=== PATIENT | female | born 1990 ===

== ENCOUNTER 2016-09-14 15:33 | Emergency (ER) | payer OTHER ==
[2016-09-14 15:40] VITALS: BP 134/74; RESP 16; TEMP 98.1; O2SAT 100
--- NOTE | 2016-09-14 16:14 | ED PDOC ---
Lower Extremity Pain/Injury Time Seen by Provider: 09/14/16 15:41 Chief Complaint (Nursing): Lower Extremity Problem/Injury Chief Complaint (Provider): Lower Extremity Problem/Injury History Per: Patient History/Exam Limitations: no limitations Onset/Duration Of Symptoms: Days Current Symptoms Are (Timing): Still Present Severity: Mild Additional Complaint(s): 25 y/o female patient presenting to the ED with foot irritation. PT states she was walking down the street Monday on her way home and she came into contact with dirty basement water while she was wearing flipflops. She states she immediately washed her feet when she got home and did not notice any immediate changes on Monday however the following day, her right foot was tender to touch , uncomfortable to put her shoes on and she noticed bumps all over the bottom of her foot. - Ankle/Foot Description Of Injury: Other (Came into contact with dirty water ) Past Medical History Reviewed: Historical Data, Nursing Documentation, Vital Signs Vital Signs: Last Vital Signs Temp 98.1 F 09/14/16 15:36 Pulse 97 H 09/14/16 15:36 Resp 16 09/14/16 15:36 BP 134/74 09/14/16 15:36 Pulse Ox 100 09/14/16 15:36 - Medical History PMH: Hypercholesterolemia, Hyperlipidemia Denies: Chronic Kidney Disease - Family History Family History: States: Unknown Family Hx - Immunization History Hx Tetanus Toxoid Vaccination: No Hx Influenza Vaccination: No Hx Pneumococcal Vaccination: No - Home Medications Home Medications: Ambulatory Orders Medication Instructions Recorded Atorvastatin [Lipitor] 25 mg PO DAILY 07/01/14 Control 07/01/14 Diphenhydramine Hydrochlorid 50 mg PO Q8 #14 cap 07/01/14 [Benadryl] Methylprednisolone [Medrol Dose 4 mg PO ASDIR #21 mg 07/01/14 Pack (21 tabs)] Codeine Phos/Phenyleph HCl/P 5 ml PO Q12 PRN #100 ml 01/28/15 [Phenergan Vc W/Codeine 480 ml] Ibuprofen [Motrin] 600 mg PO Q8 PRN #21 tab 01/28/15 Pseudoephedrine [Sudafed Tab] 60 mg PO Q6 PRN #24 tab 01/28/15 Cephalexin [cephalexin] 500 mg PO QID #20 cap 05/12/15 Ibuprofen [Motrin] 600 mg PO Q8 #20 tab 05/12/15 Fluticasone Propionate [Flonase] 2 spr NS DAILY #1 bottle 12/19/15 Promethazine DM [Phenergan DM 5 ml PO Q8 PRN #120 ml 12/19/15 Syrup] Clotrimazole 1% Cream [Lotrimin 1%] 1 cre TP BID #1 09/14/16 - Allergies Allergies/Adverse Reactions: Allergies Allergy/AdvReac Type Severity Reaction Status Date / Time No Known Allergies Allergy Verified 03/09/14 11:54 Review of Systems ROS Statement: Except As Marked, All Systems Reviewed And Found Negative Constitutional: Negative for: Fever Respiratory: Negative for: Shortness of Breath Gastrointestinal: Negative for: Nausea, Vomiting, Diarrhea Musculoskeletal: Positive for: Foot Pain Skin: Positive for: Rash Physical Exam - Reviewed Nursing Documentation Reviewed: Yes Vital Signs Reviewed: Yes - Physical Exam Appears: Positive for: Non-toxic, No Acute Distress Skin: Positive for: Normal Color, Warm Extremity: Positive for: Normal ROM, Other (Rash ) Neurologic/Psych: Positive for: Alert, Oriented. Negative for: Motor/Sensory Deficits - ECG O2 Sat by Pulse Oximetry: 100 (RA) Pulse Ox Interpretation: Normal Medical Decision Making Medical Decision Making: Time: 1541 Initial impression: Tinea pedis Initial plan: Podiatry consult- see notes Scribe Attestation: Documented by Kendra Laureano acting as a scribe for RED Stroud MD Scribe Attestation: All medical record entries made by the Scribe were at my direction and personally dictated by me. I have reviewed the chart and agree that the record accurately reflects my personal performance of the history, physical exam, medical decision making, and the department course for this patient. I have also personally directed, reviewed, and agree with the discharge instructions and disposition. Disposition - Clinical Impression Clinical Impression: Tinea pedis - Patient ED Disposition Is Patient to be Admitted: No - Disposition Referrals: Podiatry Clinic [Outside] Disposition: Routine/Home Disposition Time: 17:02 Condition: STABLE Prescriptions: Clotrimazole 1% Cream [Lotrimin 1%] 1 cre TP BID #1 Instructions: Tinea Pedis (ED) Forms: the grafter (Mongolian) - POA Present On Arrival: None
[2016-09-14 17:13] VITALS: PULSE 87
--- NOTE | 2016-09-14 17:55 | CP.PCM.CON ---
History of Present Illness - History of Present Illness History of Present Illness: This is a 25 yo female patient w/ unremarkable pmhx who presents to the ED today with chief complaint of right foot "bumps". Pt states that she was walking down the street on Monday wearing flip-flops when she came into contact with "dirty basement water". She says that she washed her feet when she got home but noticed the next day that the bottom of her foot was tender to touch and uncomfortable to walk. Of note pt says that she has had a history of sweaty/itchy feet says that she has noticed bumps before especially during the summer months but that they go away. DEnies f/n/v/c/sob or cp. Past Patient History - Infectious Disease Hx of Infectious Diseases: None - Past Social History Smoking Status: Never Smoked - CARDIAC Hx Hypercholesterolemia: Yes - PULMONARY Hx Respiratory Disorders: No - NEUROLOGICAL Hx Neurological Disorder: No - HEENT Hx HEENT Problems: No - RENAL Hx Chronic Kidney Disease: No - ENDOCRINE/METABOLIC Hx Endocrine Disorders: No - HEMATOLOGICAL/ONCOLOGICAL Hx Blood Disorders: No - INTEGUMENTARY Hx Dermatological Problems: No - MUSCULOSKELETAL/RHEUMATOLOGICAL Hx Musculoskeletal Disorders: No - GASTROINTESTINAL Hx Gastrointestinal Disorders: No - GENITOURINARY/GYNECOLOGICAL Hx Genitourinary Disorders: No - PSYCHIATRIC Hx Psychophysiologic Disorder: No Hx Substance Use: No - SURGICAL HISTORY Hx Surgeries: No - ANESTHESIA Hx Anesthesia: No Meds Home Medications: Home Medication List Medication Instructions Recorded Confirmed Type Clotrimazole 1% Cream [Lotrimin 1%] 1 cre TP BID #1 09/14/16 Rx Allergies/Adverse Reactions: Allergies Allergy/AdvReac Type Severity Reaction Status Date / Time No Known Allergies Allergy Verified 03/09/14 11:54 Physical Exam - Constitutional Appears: Well, Non-toxic, No Acute Distress - Extremities Exam Additional comments: Bilateral low ext exam: VASC- DP/PT pulses palpable, skin temp wnl, cap refill < 3 sec to all digits, no pedal edema NEURO- pedal sensation grossly intact DERM- pustule noted to medial aspect of right foot plantar arch measures approx 0.5x0.5, is fluctuant, no malodor, no ascending cellulitis noted, diffuse scaling noted to plantar aspect of right foot ORTHO- tender to touch plantar medial arch - Neurological Exam Neurological exam: Alert, CN II-XII Intact, Normal Gait - Psychiatric Exam Psychiatric exam: Normal Affect, Normal Mood Results - Vital Signs Recent Vital Signs: Last Vital Signs Temp 98.1 F 09/14/16 15:36 Pulse 87 09/14/16 17:13 Resp 16 09/14/16 15:36 BP 134/74 09/14/16 15:36 Pulse Ox 100 09/14/16 17:02 Assessment & Plan - Assessment and Plan (Free Text) Assessment: 25 yo female patient with pustular tinea pedis right foot Plan: Pt S&E in ED Plan discussed w. attending DR. Strong CHart and vitals reviewed Root prepped with betadine swab, sterile #11 blade used to alice roof of pustule and approx 0.25cc expressed pt tolerated procedure well w.o incident all questions and concerns addressed with pt Dressed with bacitracin and bandaid Rx for clotrimazole topical cream per ED, pt advised to apply to affected area of foot bid monitor for worsening of symptoms Stable per podiatry, advised to f/u in podiatry clinic
== END 2016-09-14 17:13 | disposition home or self-care (01) ==
LOC: H.ER 15:33
DX: B35.3 Tinea pedis (principal); E78.00 Pure hypercholesterolemia, unspecified

== ENCOUNTER 2017-05-03 11:01 | Emergency (ER) | payer OTHER ==
[2017-05-03 11:16] VITALS: BMI 27.4
[2017-05-03] MEDS ORDERED: Sodium Chloride 0.9% 1,000 ML IV STA (11:54)
[2017-05-03] MEDS ORDERED: DiphenhydrAMINE 50 mg/ml Inj IV STA (11:55)
--- NOTE | 2017-05-03 12:04 | ED PDOC ---
HPI: General Adult Time Seen by Provider: 05/03/17 11:43 Chief Complaint (Nursing): Fever Chief Complaint (Provider): Vomit and diarrhea History Per: Patient History/Exam Limitations: no limitations Onset/Duration Of Symptoms: Days (today) Additional Complaint(s): Pt. with nasuea, vomit, diarrhea nonbloody. Also with rash on chest and neck that is itchy. No pain on rash. Abd upper feels bubbling and cramps. No back pain, dyspnea, chest pain, headaches, dizziness, weakness. Has body aches. No dysuria. No new food, drinks, lotion, or anything new or different. Past Medical History Reviewed: Nursing Documentation, Vital Signs Vital Signs: Last Vital Signs Temp 100.5 F H 05/03/17 11:52 Pulse 95 H 05/03/17 13:08 Resp 18 05/03/17 13:08 BP 105/69 05/03/17 11:52 Pulse Ox 96 05/03/17 13:36 - Medical History PMH: Hypercholesterolemia Denies: Chronic Kidney Disease - Surgical History Surgical History: No Surg Hx - Family History Family History: States: Unknown Family Hx - Immunization History Hx Tetanus Toxoid Vaccination: No Hx Influenza Vaccination: No Hx Pneumococcal Vaccination: No - Home Medications Home Medications: Ambulatory Orders Medication Instructions Recorded Atorvastatin [Lipitor] 25 mg PO DAILY 07/01/14 Control 07/01/14 Diphenhydramine Hydrochlorid 50 mg PO Q8 #14 cap 07/01/14 [Benadryl] Methylprednisolone [Medrol Dose 4 mg PO ASDIR #21 mg 07/01/14 Pack (21 tabs)] Codeine Phos/Phenyleph HCl/P 5 ml PO Q12 PRN #100 ml 01/28/15 [Phenergan Vc W/Codeine 480 ml] Ibuprofen [Motrin] 600 mg PO Q8 PRN #21 tab 01/28/15 Pseudoephedrine [Sudafed Tab] 60 mg PO Q6 PRN #24 tab 01/28/15 Cephalexin [cephalexin] 500 mg PO QID #20 cap 05/12/15 Ibuprofen [Motrin] 600 mg PO Q8 #20 tab 05/12/15 Fluticasone Propionate [Flonase] 2 spr NS DAILY #1 bottle 12/19/15 Promethazine DM [Phenergan DM 5 ml PO Q8 PRN #120 ml 12/19/15 Syrup] Clotrimazole 1% Cream [Lotrimin 1%] 1 cre TP BID #1 09/14/16 - Allergies Allergies/Adverse Reactions: Allergies Allergy/AdvReac Type Severity Reaction Status Date / Time No Known Allergies Allergy Verified 03/09/14 11:54 Review of Systems ROS Statement: Except As Marked, All Systems Reviewed And Found Negative Gastrointestinal: Positive for: Nausea, Vomiting, Abdominal Pain, Diarrhea Musculoskeletal: Positive for: Other (body aches) Physical Exam - Reviewed Nursing Documentation Reviewed: Yes Vital Signs Reviewed: Yes - Physical Exam Appears: Positive for: Non-toxic, No Acute Distress Head Exam: Positive for: ATRAUMATIC, NORMAL INSPECTION, NORMOCEPHALIC Skin: Positive for: Normal Color, Warm, DRY Eye Exam: Positive for: EOMI, Normal appearance, PERRL ENT: Positive for: Normal ENT Inspection Neck: Positive for: Normal, Painless ROM, Supple Cardiovascular/Chest: Positive for: Tachycardia (mild) Respiratory: Positive for: CNT, Normal Breath Sounds Gastrointestinal/Abdominal: Positive for: Bowel Sounds, Soft, Tenderness ( epigastric) Back: Positive for: Normal Inspection. Negative for: L CVA Tenderness, R CVA Tenderness Extremity: Positive for: Normal ROM. Negative for: Tenderness Neurologic/Psych: Positive for: Alert, Oriented - Laboratory Results Result Diagrams: 05/03/17 14:55 05/03/17 13:10 Interpretation Of Abn Labs: 13 wbc; 3 lactate - ECG ECG: Positive for: Interpreted By Me, Viewed By Me ECG Rhythm: Positive for: Sinus Tachycardia O2 Sat by Pulse Oximetry: 96 Pulse Ox Interpretation: Normal - Progress ED Course And Treament: 1635: Stable. AAOx3. Pain free. Tolerated PO. Wants to go home. Does not want a ct. Advised about possible gall bladder, appendix, or other problems that we are not able to see without a cat scan. States she will come back if any changes. Otherwise will fu with her pcp. 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 Disposition - Clinical Impression Clinical Impression: Dermatitis, Vomiting, Diarrhea - Patient ED Disposition Is Patient to be Admitted: No Counseled Patient/Family Regarding: Studies Performed, Diagnosis, Need For Followup - Disposition Referrals: [facility] [Outside] - 05/04/17 Disposition: Routine/Home Disposition Time: 16:46 Condition: STABLE Additional Instructions: Return back for any symptoms like abdominal pain, weakness, nausea, vomit, diarrhea, fever, or not feeling well. We have agreed to not get a cat scan of your abdomen for further evaluation. If symptoms return then you may have a gall bladder, appendix, or other issue and should return for further evaluation and treatment. Instructions: Acute Nausea and Vomiting (ED), Acute Diarrhea (ED), Urticaria ( ED) Forms: [facility] (Mauritanian), [facility] ED School/Work Excuse
[2017-05-03 13:25] LABS: VENOUS BLOOD GAS BASE EXCESS 0.5 mmol/L (0.0-2.0); VENOUS BLOOD GAS PCO2 44 mmHg (40-60); VENOUS BLOOD GAS PO2 29 mm/Hg (30-55); VENOUS BLOOD PH 7.38 (7.32-7.43)
[2017-05-03] MEDS ORDERED: DiphenhydrAMINE 50 mg/ml Inj ONE (13:30)
[2017-05-03 13:49] LABS: ALBUMIN 4.3 g/dL (3.5-5.0); ALT/SGPT 11 U/L (9-52); AST/SGOT 19 U/L (14-36); BLOOD UREA NITROGEN 7 mg/dl (7-17); CALCIUM 9.5 mg/dL (8.4-10.2); GFR AFRICAN-AMERICAN > 60; GFR NON-AFRICAN AMERICAN > 60; LIPASE 54 U/L (23-300)
[2017-05-03 15:17] LABS: BASO % 0.2 % (0.0-2.0); EOS % 0.1 % (0.0-4.0); HEMOGLOBIN 12.9 g/dL (12.0-16.0); LYMPH # 0.6 K/uL (1.0-4.3); LYMPH % 4.4 % (20.0-40.0); MEAN CELL VOLUME 89.2 fl (81.0-99.0); MEAN CORPUSCULAR HEMOGLOBIN 28.9 pg (27.0-31.0); MEAN CORPUSCULAR HGB CONC 32.4 g/dL (33.0-37.0); MONO # 0.2 K/uL (0.0-0.8); MONO % 1.7 % (0.0-10.0); NEUT # 12.1 K/uL (1.8-7.0); NEUT % 93.6 % (50.0-75.0); PLATELET COUNT 320 K/uL (130-400); RBC 4.47 Mil/uL (3.80-5.20); RED CELL DISTRIBUTION WIDTH 13.6 % (11.5-14.5)
[2017-05-03 16:59] LABS: ANISOCYTOSIS SLIGHT; BANDS 6 % (0-2); LYMPHOCYTE 6 % (20-50); MICROCYTOSIS SLIGHT; MONOCYTE 5 % (0-10); NEUTROPHIL 83 % (42-75); PLATELET ESTIMATE NORMAL (NORMAL); TOTAL CELLS COUNTED 100
[2017-05-03 17:35] VITALS: BP 128/79; PULSE 78; RESP 16; TEMP 99; O2SAT 100
--- NOTE | 2017-05-04 11:28 | CARD ---
APPROVED REPORT EKG Measurement Heart [id number] <Conclusion> Sinus tachycardia Otherwise normal ECG
== END 2017-05-03 17:34 | disposition home or self-care (01) ==
LOC: H.ER 11:01
DX: R11.2 Nausea with vomiting, unspecified (principal); R19.7 Diarrhea, unspecified; L30.9 Dermatitis, unspecified; R00.0 Tachycardia, unspecified; E78.00 Pure hypercholesterolemia, unspecified
CPT/HCPCS: 80053; 81025; 82803; 83690; 85025; 87040; 87804; 93005; 96374; 99284; J1200; J2405; J2930; J7040